=== PATIENT | male | born 1970 | race African-American/Black ===

== ENCOUNTER 2023-06-02 16:27 | Emergency (ER) | payer OTHER ==
[2023-06-02 16:41] VITALS: BP 140/88; PULSE 77; RESP 18; TEMP 98; BMI 26.6
[2023-06-02] MEDS ORDERED: ACETAMINOPHEN 500 MG TABLET (FP) PO ONE (17:22)
[2023-06-02] MEDS ORDERED: KETOROLAC TROMETHAMINE 30 MG/1 ML VIAL IM ONE (17:22)
[2023-06-02] MEDS ORDERED: ACETAMINOPHEN 500 MG TABLET (FP) ONE (17:25)
[2023-06-02] MEDS ORDERED: KETOROLAC TROMETHAMINE 30 MG/1 ML VIAL ONE (17:25)
== END 2023-06-02 18:59 | disposition home or self-care (01) ==
LOC: JER 16:27 → JERFT 16:27
PROC: 3E0233Z Introduction of Anti-inflammatory into Muscle, Percutaneous Approach (ICD-10-PCS; principal; 2023-06-02)
DX: M54.50 Low back pain, unspecified (principal); V43.52XA Car driver injured in collision with other type car in traffic accident, initial encounter; Y93.I9 Activity, other involving external motion
CPT/HCPCS: 72100-TC-FY; 99284-25